=== PATIENT | female | born 1990 | race American Indian/Alaskan Native ===

== ENCOUNTER 2019-01-09 21:43 | Emergency (ER) | payer SELFPAY ==
--- NOTE | 2019-01-09 22:10 | Emergency Department Report ---
Blank Doc - Documentation Documentation: This is a 28-year-old female that presents with right knee pain. This initial assessment/diagnostic orders/clinical plan/treatment(s) is/are subject to change based on patient's health status, clinical progression and re- assessment by fellow clinical providers in the ED. Further treatment and workup at subsequent clinical providers discretion. Patient/guardians urged not to elope from the ED as their condition may be serious if not clinically assessed and managed. Initial orders include: 1- Patient sent to [facility] for further evaluation and treatment 2- xray
[2019-01-09 22:12] VITALS: BP 117/83
--- NOTE | 2019-01-09 22:58 | XRay Report ---
Right knee, 3 views INDICATION: Pain following injury yesterday FINDINGS: The joint space is maintained. There is no fracture or dislocation. No spurring or arthriti c change. No bone lesion or periostitis. No significant abnormality. IMPRESSION: Negative study Signer Name: Kuldeep Delarosa MD Signed: 01/09/2019 10:54 PM Workstation Name: [id number]
[2019-01-10] MEDS ORDERED: ULTRAM PO ONE (01:11)
--- NOTE | 2019-01-10 01:45 | Emergency Department Report ---
ED Lower Extremity HPI - General Chief Complaint: Extremity Injury, Lower Stated Complaint: RT LEG PAIN, MIGRAINE Time Seen by Provider: 01/09/19 22:10 Source: patient Mode of arrival: Wheelchair Limitations: No Limitations - History of Present Illness Initial Comments: pt is a 28 y/o aaf who presents for right knee pain state she struck her right knee on metal table at work yesterday now with pain and aching, 5/10 pt remains ambulatory with steady gait . Complaint: knee injury Onset/Timin -: days(s) Injury: Knee: Right Type of Injury: hyperextension Place: work Severity: moderate Severity scale (0 -10): 5 Improves With: nothing Worsens With: weight bearing, movement, palpation Context: direct blow Other Symptoms: loss of consciousness Associated Symptoms: swelling, able to partially bear weight. denies: snap/pop sensation, numbness, tingling - Related Data Previous Rx's Medication Instructions Recorded Last Taken Type Cyclobenzaprine [Flexeril] 10 mg PO TID PRN #30 tablet 01/10/19 Unknown Rx Menthol/Camphor [[place] 1 applicatio TP QID PRN #1 tube 01/10/19 Unknown Rx Ointment] Naproxen [Naprosyn] 500 mg PO BID PRN #30 tablet 01/10/19 Unknown Rx Allergies Allergy/AdvReac Type Severity Reaction Status Date / Time No Known Allergies Allergy Unverified 01/10/19 01:33 ED Review of Systems ROS: Stated complaint: RT LEG PAIN, MIGRAINE Other details as noted in HPI Constitutional: denies: chills, fever Eyes: denies: eye pain, eye discharge, vision change ENT: denies: ear pain, throat pain Respiratory: denies: cough, shortness of breath, wheezing Cardiovascular: denies: chest pain, palpitations Endocrine: no symptoms reported Gastrointestinal: denies: abdominal pain, nausea, diarrhea Genitourinary: denies: urgency, dysuria, discharge Musculoskeletal: joint swelling (right anterior knee pain ). denies: back pain, arthralgia Skin: denies: rash, lesions Neurological: denies: headache, weakness, paresthesias Psychiatric: denies: anxiety, depression Hematological/Lymphatic: denies: easy bleeding, easy bruising ED Past Medical Hx - Past Medical History Previous Medical History?: No - Surgical History Past Surgical History?: No - Social History Smoking Status: Never Smoker Substance Use Type: None - Medications Home Medications: Home Medications Medication Instructions Recorded Confirmed Last Taken Type Cyclobenzaprine [Flexeril] 10 mg PO TID PRN #30 tablet 01/10/19 Unknown Rx Menthol/Camphor [[place] 1 applicatio TP QID PRN #1 tube 01/10/19 Unknown Rx Ointment] Naproxen [Naprosyn] 500 mg PO BID PRN #30 tablet 01/10/19 Unknown Rx ED Physical Exam - General Limitations: No Limitations General appearance: alert, in no apparent distress - Head Head exam: Present: atraumatic, normocephalic - Eye Eye exam: Present: normal appearance, PERRL, EOMI Pupils: Present: normal accommodation - ENT ENT exam: Present: mucous membranes moist - Neck Neck exam: Present: normal inspection, full ROM. Absent: tenderness, lymphadenopathy, thyromegaly - Respiratory Respiratory exam: Present: normal lung sounds bilaterally. Absent: respiratory distress, wheezes, stridor, chest wall tenderness - Cardiovascular Cardiovascular Exam: Present: regular rate, normal rhythm, normal heart sounds. Absent: systolic murmur, diastolic murmur, rubs, gallop - GI/Abdominal GI/Abdominal exam: Present: soft, normal bowel sounds. Absent: distended, tenderness, bruit, hernia - Rectal Rectal exam: Present: deferred - Extremities Exam Extremities exam: Present: full ROM, tenderness, normal capillary refill. Absent: pedal edema, joint swelling, calf tenderness - Expanded Lower Extremity Exam Right Knee exam: Present: full ROM, tenderness (anterior medial knee ), pain w/ pronation/supination, full knee extension. Absent: swelling, abrasion, laceration, ecchymosis, deformity, crepidus, dislocation, erythema, effusion, posterior draw sign, pain/laxity with valgus, pain/laxity with varus Lower Leg exam: Present: full ROM. Absent: tenderness Ankle exam: Present: full ROM. Absent: tenderness Foot/Toe exam: Present: full ROM. Absent: tenderness, swelling Neuro vascular tendon exam: Absent: pulse deficit, motor deficit, sensory deficit, tendon deficit Gait: Positive: observed and normal - Back Exam Back exam: Present: normal inspection, full ROM. Absent: tenderness, CVA tenderness (R), CVA tenderness (L), muscle spasm, paraspinal tenderness, vertebral tenderness, rash noted - Neurological Exam Neurological exam: Present: alert, oriented X3, CN II-XII intact, normal gait, reflexes normal. Absent: motor sensory deficit - Psychiatric Psychiatric exam: Present: normal affect, normal mood - Skin Skin exam: Present: warm, dry, intact, normal color. Absent: rash ED Course Vital Signs 01/09/19 22:10 Temperature 98.6 F Pulse Rate 78 Respiratory 18 Rate Blood Pressure 117/83 O2 Sat by Pulse 100 Oximetry ED Lower Extremity MDM - Radiology Data Radiology results: report reviewed, image reviewed Ordering Physician: HANNAH LUNA NP Date of Service: 01/09/19 Procedure(s): XR knee 3V RT Accession Number(s): [id number] cc: HANNAH LUNA NP Fluoro Time In Minutes: Right knee, 3 views INDICATION: Pain following injury yesterday FINDINGS: The joint space is maintained. There is no fracture or dislocation. No spurring or arthritic change. No bone lesion or periostitis. No significant abnormality. IMPRESSION: Negative study Signer Name: Kuldeep Delarosa MD Signed: 01/09/2019 10:54 PM Workstation Name: [id number] Transcribed By: Dictated By: Kuldeep Delarosa MD Electronically Authenticated By: Kuldeep Delarosa MD Signed Date/Time: 01/09/192253 DD/ 52 TD/TT: - Medical Decision Making This is a knee strain, plan nsaids, muscle relaxant, analgesic balm follow up with ortho follow up with pcp in 2-3 days return to ed if symptoms worsen. Critical care attestation.: If time is entered above; I have spent that time in minutes in the direct care of this critically ill patient, excluding procedure time. ED Disposition Clinical Impression: Knee strain Qualifiers: Encounter type: initial encounter Laterality: left Qualified Code(s): S86.912A - Strain of unspecified muscle(s) and tendon(s) at lower leg level, left leg, initial encounter Disposition: - TO HOME OR SELFCARE Is pt being admited?: No Does the pt Need Aspirin: No Condition: Stable Instructions: Knee Pain (ED) Prescriptions: Cyclobenzaprine [Flexeril] 10 mg PO TID PRN #30 tablet PRN Reason: Muscle Spasm Naproxen [Naprosyn] 500 mg PO BID PRN #30 tablet PRN Reason: pain Menthol/Camphor [[place] Ointment] 1 applicatio TP QID PRN #1 tube PRN Reason: pain Referrals: MARIA R CASTELANHAMLIN MD NOÉ [Primary Care Provider] - 3-5 Days RAJINDER MITCHELL MD [Staff Physician] - 3-5 Days Forms: Work/School Release Form(ED) Time of Disposition: 01:57
== END 2019-01-10 02:24 | disposition home or self-care (01) ==
LOC: ED 21:43
DX: S86.912A Strain of unspecified muscle(s) and tendon(s) at lower leg level, left leg, initial encounter (principal); W22.03XA Walked into furniture, initial encounter; Y93.89 Activity, other specified; Y92.89 Other specified places as the place of occurrence of the external cause; Y99.8 Other external cause status

== ENCOUNTER → 2021-03-01 | Outpatient (CLI) | payer MEDICAID | END | disposition home or self-care (01) | LOC: SLR 11:00 | PROVIDERS: ATTEND Surgery | DX: G47.30 Sleep apnea, unspecified (principal) | CPT/HCPCS: G0399 ==

== ENCOUNTER 2021-06-22 07:15 | Day surgery (SDC) | payer MEDICAID ==
[~2021-06-22 07:15] MED LIST: SODIUM CHLORIDE 0.9% 1000 ML 1,000 ML IV SCH
--- NOTE | 2021-06-22 08:30 | Anesthesia Day of Surgery ---
Anesthesia Day of Surgery - Day of Surgery Patient Examined: Yes Patient H&P Reviewed: Yes Patient is NPO: Yes
--- NOTE | 2021-06-22 08:31 | Anesthesia Consultation ---
Anesthesia Consult and Med Hx Date of service: 06/22/21 - Airway Anesthetic Teeth Evaluation: Chipped ROM Head & Neck: Adequate Mental/Hyoid Distance: Adequate Mallampati Class: Class II Intubation Access Assessment: Probably Good - Pre-Operative Health Status ASA Pre-Surgery Classification: ASA3 Proposed Anesthetic Plan: MAC - Pulmonary Hx Smoking: No Hx Sleep Apnea: Yes - Gastrointestinal Hx Gastroesophageal Reflux Disease: Yes - Endocrine Hx Non-Insulin Dependent Diabetes: No - Hematic Hx Sickle Cell Disease: No - Other Systems Hx Obesity: Yes
--- NOTE | 2021-06-22 08:33 | Operative Report ---
Operative Report Operative Report: DATE: 06/22/2021 SURGERY: Upper endoscopy. SURGEON: Evangelina Magaña M.D. PROCEDURE: EGD with biopsy PRE OP DX: morbid obesity, GERD POST OP DX: morbid obesity, GERD TYPE OF ANESTHESIA: MAC. ESTIMATED BLOOD LOSS: None. COMPLICATIONS: None. SPECIMENS REMOVED: antral biopsy FINDINGS: 1. hiatal hernia. 2. esophagitis 3. gastritis INDICATIONS:INDICATION FOR PROCEDURE: Patient is a 31-year-old female with a long history of morbid obesity. She is planned to have a weight loss procedure and is here for preoperative planning EGD. PROCEDURE DETAILS: After consent was reviewed, patient was taken back to the operating room where patient was placed in the left lateral decubitus position and a bite block was placed in the mouth. After a time-out was called, MAC anesthesia was initiated. I then passed the endoscope into her oropharynx, into her esophagus, visualized the entire esophagus. There was noted to be an irregular z-line with esophagitis. A biopsy was taken of the distal esophagus. Z-line was noted to about 40cm from incisors. I then visualized the stomach and the first portion of the duodenum and there were no abnormalities I could clearly visualize except for antral gastritis. A cold forceps biopsy of the antrum was taken and will be sent to pathology to evaluate for H.pylori. I then retroflexed the scope in the stomach and visualized the hiatus and I could see a significant hiatal hernia measuring 2-3cm. I then desufflated the stomach and removed the endoscope. Patient tolerated procedure well and was transferred to recovery room in good and stable condition.
--- NOTE | 2021-06-22 08:34 | Discharge Summary ---
Providers - Providers Date of Admission: 06/22/2021 Date of discharge: 06/22/21 Attending physician: MONTY DELUNA MD Primary care physician: RENE HECK MD Hospitalization Reason for admission: pre-op egd Condition: Good Procedures: egd with bx Hospital course: Pt presented for a pre-op EGD as part of planning for up coming bariatric surgery. Procedure was uneventful and pt recovered well and was discharged to home. Disposition: HOME / SELF CARE / HOMELESS Final Discharge Diagnosis (Prints w/discharge instructions): gerd, morbid obesity Core Measure Documentation - Palliative Care Palliative Care/ Comfort Measures: Not Applicable - Core Measures Any of the following diagnoses?: none Exam - Physical Exam Narrative exam: unchanged from pre-op exam Plan Activity: advance as tolerated Diet: low carbohydrate Follow up with: RENE GUERRA MD [Primary Care Provider] - 7 Days
[2021-06-22] MEDS ORDERED: propofoL 200 MG/20 ML VIAL IV ONE (09:48)
[2021-06-22] MEDS ORDERED: LIDOCAINE MPF (2%) 20 MG/1 ML VIAL 5 ML ONE (10:08)
[2021-06-22 15:25] VITALS: BP 133/87
--- NOTE | 2021-06-22 15:49 | Post Anesthesia Evaluation ---
- Post Anesthesia Evaluation Patient Participated: Yes Airway Patent: Yes Stable Respiratory Function: Yes Nausea/Vomiting: No Temp > 96.8F: Yes Pain Manageable: Yes Adequeate Hydration: Yes Anesthesia Complications: No Block Receding Appropriately: Not Applicable Patient on Ventilator: No
== END 2021-06-22 11:05 | disposition home or self-care (01) ==
LOC: GIO 07:15
PROVIDERS: ATTEND Surgery
DX: E66.01 Morbid (severe) obesity due to excess calories (principal); K21.00 Gastro-esophageal reflux disease with esophagitis, without bleeding; K44.9 Diaphragmatic hernia without obstruction or gangrene; K29.50 Unspecified chronic gastritis without bleeding; K31.89 Other diseases of stomach and duodenum; G47.30 Sleep apnea, unspecified; Z79.899 Other long term (current) drug therapy; Z98.890 Other specified postprocedural states
CPT/HCPCS: 43239; 81025; 88305; 88342; J2704; J3490; J7030; J7120; Q0162

== ENCOUNTER 2021-09-13 08:32 | Inpatient (IN) | payer MEDICAID ==
[2021-09-09 10:02] LABS: Hematocrit 38.5 % (30.3-42.9); Hemoglobin 12.4 gm/dl (10.1-14.3); Mean Corpuscular HGB Conc 32 % (30-34); Mean Corpuscular Volume 83 fl (79-97); Platelet Count 213 K/mm3 (140-440); Red Blood Count 4.61 M/mm3 (3.65-5.03); Red Cell Distribution Width 15.6 % (13.2-15.2)
--- NOTE | 2021-09-09 10:16 | Anesthesia Consultation ---
Anesthesia Consult and Med Hx Date of service: 09/13/21 - Airway Anesthetic Teeth Evaluation: Good (upper and lower braces) ROM Head & Neck: Adequate Mental/Hyoid Distance: Adequate Mallampati Class: Class II Intubation Access Assessment: Probably Good - Pulmonary Exam CTA: Yes - Cardiac Exam Cardiac Exam: RRR - Pre-Operative Health Status ASA Pre-Surgery Classification: ASA3 Proposed Anesthetic Plan: General - Pulmonary Hx Smoking: Yes (daily THC) Hx Respiratory Symptoms: No (normal PFTs) Hx Sleep Apnea: Yes (moderate per sleep study; no currently using CPAP) - Cardiovascular System Hx Hypertension: No ("borderline," no meds) Hx Heart Attack/AMI: No (negative stress test) - Central Nervous System CVA: No Hx Back Pain: Yes - Gastrointestinal Hx Gastroesophageal Reflux Disease: Yes - Endocrine Hx Renal Disease: No Hx Liver Disease: No Hx Insulin Dependent Diabetes: No Hx Non-Insulin Dependent Diabetes: No Hx Thyroid Disease: No - Other Systems Hx Substance Use: Yes (Marijuana daily) Hx Obesity: Yes (BMI 46) - Additional Comments Anesthesia Medical History Comments: No prior [place]. Preop cardiac and pulmonary studies on chart reviewed.
[2021-09-09 11:26] LABS: Alanine Aminotransferase 16 units/L (7-56); Albumin 4.1 g/dL (3.9-5); BUN/Creatinine Ratio 23; Blood Urea Nitrogen 16 mg/dL (7-17); Calcium 9.4 mg/dL (8.4-10.2); Hemolysis Index 3
[~2021-09-13 08:32] MED LIST changes: +ACETAMINOPHEN IV 1,000 MG/100 ML BOTTLE IV NR; +ENOXAPARIN 40 MG/0.4 ML INJ SUB-Q NR; +GABAPENTIN 500 MG/10 ML ORAL LIQD PO NR; +LACTATED RINGERS 1,000 ML IV SCH; +MIDAZOLAM 2 MG/2 ML INJ IV NR; +SCOPOLAMINE TRANSDERMAL PATCH 72 HR TD NR; -SODIUM CHLORIDE 0.9% 1000 ML 1,000 ML IV SCH; +methOCARBAMOL 1,000 MG in SODIUM CHLORIDE 0.9% 250ML 250 ML IV SCH; +metroNIDAZOLE/NS 500 MG/100 ML 500 MG/100 ML BAG IV NR
[2021-09-13] MEDS: ENOXAPARIN 40 MG/0.4 ML INJ SUB-Q SCH (09:20)
[2021-09-13] MEDS ORDERED: LIDOCAINE 1%/EPINEPHRINE 1:100,000 VIAL (20 ML) INFILTRATI ONE ×2 (11:47→12:50)
[2021-09-13] MEDS ORDERED: BUPIVACAINE/PF (0.25%) 2.5 MG/ML 30 ML VIAL INFILTRATI ONE ×2 (11:47→12:50)
[2021-09-13] MEDS ORDERED: MAGNESIUM SULFATE 2 GM/50 ML BAG IV ONE (11:58)
[2021-09-13] MEDS ORDERED: ROCURONIUM 50 MG/5 ML INJ IV ONE ×2 (12:00→14:38)
[2021-09-13] MEDS ORDERED: LIDOCAINE MPF (2%) 20 MG/1 ML VIAL 5 ML ONE (12:00)
[2021-09-13] MEDS ORDERED: KETAMINE/STERILE WATER 50 MG/ML SYRINGE ONE (12:00)
[2021-09-13] MEDS ORDERED: SODIUM CHLORIDE P/F VIAL 10 ML 10 ML ONE (12:01)
[2021-09-13] MEDS ORDERED: WATER FOR IRRIG STERILE 1,500 ML BOTTLE IR ONE (12:50)
[2021-09-13] MEDS ORDERED: SODIUM CHLORIDE 0.9% IRR 1,500 ML BOTTLE IR ONE (12:50)
[2021-09-13] MEDS ORDERED: MIDAZOLAM 2 MG/2 ML INJ ONE (13:00)
[2021-09-13] MEDS ORDERED: dexAMETHasone 20 MG/5 ML VIAL ONE (14:38)
[2021-09-13] MEDS ORDERED: KETOROLAC 30 MG/1 ML INJ ONE (14:38)
[2021-09-13] MEDS ORDERED: ONDANSETRON 4 MG/2 ML INJ ONE (14:38)
[2021-09-13] MEDS ORDERED: HYDROmorphone 1 MG/1 ML INJ ONE (14:46)
[2021-09-13] MEDS: HYDROmorphone 1 MG/1 ML INJ IV PRN ×2 (14:50→15:00)
--- NOTE | 2021-09-13 15:17 | Operative Report ---
Operative Report Operative Report: DATE:09/13/2021 Surgeon: Evangelina Magaña MD Tram Inspector surgeon:Elio Villanueva CSA MD Pre-op Dx: morbid obesity, hiatal hernia Post-op Dx: morbid obesity, hiatal hernia Procedure: 1. laparoscopic sleeve gastrectomy, 2. hiatal hernia repair Anesthesia: GETA and TAP block EBL: <10ml Specimen: gastric remnant Complication: none immediate Indication: 31 year old female with a history of morbid obesity . Pt is here for sleeve gastrectomy for weight loss to achieve healthier weight and improve or resolve her co-morbidities. She expressed understanding of the risks and benefits. PROCEDURE IN DETAIL: After consent was reviewed, patient was taken back to the operating room, where patient was placed supine on the bed with both arms out. The patient's legs were doubly strapped to the bed. Patient had a foot board in place. Patient had a body warmer placed by anesthesia. General anesthesia was induced with successful endotracheal intubation. Patient was then prepped and draped in normal sterile surgical fashion. After a time-out was called, I made a stab incision in the left subcostal area and placed a Veress needle through this incision and insufflated the abdomen to 15 mmHg pressure. I then counted down a handsbreadth below the xiphoid process in the midline and slightly left lateral injected local anesthetic and made about 1 cm transverse incision. I then used a 5-mm Optiview trocar to enter into the abdomen. There was no gross injury to any intra-abdominal structures. I then placed a 30-degree scope through this port and inspected the abdomen. I then placed a 8-mm port in the right upper quadrant, and 1 5mm in the epigastric area below the costovertebral angle. I then placed a 15-mm port about a handsbreadth in the right mid abdomen. After which a 5mm port was placed in left upper quadrant port along the anterior axillary line in a similar fashion. A liver retractor was placed to the epigastric port to elevate the left lateral lobe and liver. There was a small hiatal hernia appreciated that was accentuated with right and left crural dissection. Hiatal hernia sac was dissected from the crura until the GE junction was resting about 2cm below the level of the diaphragm without tension. An anterior crura-plasty was preformed a U-stitch using surgidac suture. The an terior gastric fat pad was excised. Starting approximately 6 cm proximal to the pylorus, using a Enseal device the short gastrics were taken all the way to the left lisa. Once the lateral portion of the stomach was mobile anesthesia passed a 40 Polish bougie along the medial aspect to act as a stent. Using serial firings of endoscopic stapler to gold, followed by 4 blue, the lateral portion of the stomach was transected making sure to did not close to the 2 cm to the incisura. All staple loads were supported with Ethicon buttress strips. The sleeve stomach was seen to be without kink obstruction or twisting. The pressure was decreased to 10 mmHg. The staple line was inspected for approximately 5 minutes. There was no significant bleeding appreciated except for a slight ooze at the most distal portion of the staple line. Bleeding was minimal and easily controlled with minimal cautery. Vistaseal was then sprayed along the entirety of the staple line. The liver retractor was removed. A TAP block was performed with 60ml of 0.25% marcaine along bilateral mid axillary lines starting from the subcostal region to just below the level of the umbilicus This was after the gastric remnant was grasped and pulled into the 15 mm trocar site. The stomach was extracted via the 15 mm trocar site. After the fascia had to be stretched with a Delia clamp to easily remove the stomach, the fascia was closed using a yonatan jaguar device at the level of the fascia with an 0 PDS. trocars were removed under direct visualization. All skin incisions were closed with 4-0 Monocryl followed by Dermabond. Patient was awoken, extubated, and taken to recovery stable condition. All counts were correct.
--- NOTE | 2021-09-13 16:18 | Anesthesia Day of Surgery ---
Anesthesia Day of Surgery - Day of Surgery Patient Examined: Yes Patient H&P Reviewed: Yes Patient is NPO: Yes
[2021-09-13] MEDS: KETOROLAC 30 MG/1 ML INJ IV SCH ×2 (16:50→22:26)
[2021-09-13] MEDS ORDERED: hydrALAZINE 20 MG/1 ML INJ IV PRN (17:00)
[2021-09-13] MEDS ORDERED: SIMETHICONE 80 MG CHEW TAB PO PRN (17:00)
[2021-09-13] MEDS ORDERED: HYDROmorphone 1 MG/1 ML INJ IV PRN (17:00)
[2021-09-13] MEDS ORDERED: MORPHINE 2 MG/1 ML INJ IV PRN (17:00)
[2021-09-13] MEDS ORDERED: METOCLOPRAMIDE 10 MG/2 ML INJ IV PRN (17:00)
[2021-09-13] MEDS ORDERED: HYDROcodone/Acetaminophen 7.5-325MG-15ML ORAL LIQD PO PRN (17:00)
[2021-09-13] MEDS: ONDANSETRON 4 MG/2 ML INJ IV PRN (18:50)
[2021-09-13] MEDS: PANTOPRAZOLE 40 MG INJ IV SCH (18:50)
[2021-09-13] MEDS: ACETAMINOPHEN IV 1,000 MG/100 ML BOTTLE IV SCH ×2 (18:55→23:55)
[2021-09-13] MEDS: LACTATED RINGERS 1,000 ML IV SCH (19:03)
[2021-09-13] MEDS: metroNIDAZOLE/NS 500 MG/100 ML 500 MG/100 ML BAG IV SCH (22:34)
[2021-09-13] MEDS: ceFAZolin/NS 1 GM/50 ML 1 GM/50 ML BAG IV SCH (23:06)
[2021-09-14] MEDS: metroNIDAZOLE/NS 500 MG/100 ML 500 MG/100 ML BAG IV SCH ×2 (00:02→08:16)
[2021-09-14] MEDS: ceFAZolin/NS 1 GM/50 ML 1 GM/50 ML BAG IV SCH ×2 (00:07→04:00)
[2021-09-14] MEDS: LACTATED RINGERS 1,000 ML IV SCH ×2 (00:34→08:37)
[2021-09-14] MEDS: ONDANSETRON 4 MG/2 ML INJ IV PRN ×2 (01:09→05:23)
[2021-09-14] MEDS: KETOROLAC 30 MG/1 ML INJ IV SCH ×2 (04:02→09:41)
[2021-09-14] MEDS: ACETAMINOPHEN IV 1,000 MG/100 ML BOTTLE IV SCH ×2 (05:23→13:37)
--- OUTSIDE RECORDS SUMMARY | 2021-09-14 06:00 | External Medical Summary ---
:1990 Author Organization [facility], [facility] Address [address] [place] [address] Care Team Providers Name Role Phone Archana Unavailable [phone] PROBLEMS Type Condition ICD9-CM DRM35-PI Onset Condition W/U Status Risk SNOM ED Notes Code Code Dates Status Code Problem Sleep G47.9 Active confirmed 93789223 disorder, unspecified Problem Sleep apnea, G47.30 Active confirmed [id number] unspecified Problem Dietary Z71.3 Active confirmed 396037021 counseling and surveillance Problem Morbid E66.01 Active confirmed [id number] (severe) obesity due to excess calories Problem Gastro-esopha K21.9 Active confirmed [id number] 005 geal reflux disease without esophagitis ALLERGIES No Known Allergies ENCOUNTERS from 1992 to 2021-09-10 Encounter Location Date Provider Diagnosis [facility] [address] [place] [address] Sep, Evangelina Magaña Morbi d (severe) RD [facility] Level obesity due to excess of [facility] [place], [place] calorie s E66.01 ; [id number] Gastro-esophage al reflux disease without esophagitis K21 .9 and Sleep apnea, unspecified G47 .30 IMMUNIZATIONS No Information SOCIAL HISTORY Tobacco Use: Social History Observation Description Date Details (start date - stop date) Never Smoker Sex Assigned At : Social History Observation Description Sex Assigned At Unknown Smoking Question Answer Notes Are you a: never smoker REASON FOR REFERRAL from 1992 to 2021-09-10 Reason Gastric Sleeve Diagnosis 1 Morbid (severe) obesity due to excess calories (E66.01) Diagnosis 2 Gastro-esophageal reflux dis ease without esophagitis (K21.9) Diagnosis 3 Sleep disorder, unspecified (G47.9) Diagnosis 4 Pain in left knee (M25.562) Diagnosis 5 Low back pain (M54.5) Diagnosis 6 Sleep apnea, unspecified (G4 7.30) Referral Organization [facility] Referring Provider First Name Evangelina Referring Provider Last Name Archana Referring Provider Specialty Surgery Referred Provider [facility], - Referral Priority Routine VITAL SIGNS Height 66 in Sep, Weight 290 lbs Sep, Temperature 97.3 degrees Fahrenheit Sep, BMI 46.80 kg/m2 Sep, MEDICATIONS Medication SIG (Take, Route, Notes Start Date End Date Status Frequency, Duration) HYDROcodone-Acetaminophe 15 ml as needed Orally Sep,Sep, Active n 7.5-325 MG/15ML every 6 hrs prn pain for 7 days Omeprazole 40 MG 1 capsule 30 minutes Sep, Active before morning meal Orally Once a day for 30 day(s) Ondansetron 4 MG 1-2 tablet on the Sep, Active tongue and allow to dissolve Orally q 4-6 hours prn nausea Omeprazole 40 MG 1 capsule 30 minutes Jun, Active before morning meal Orally Once a day for 30 day(s) PROCEDURES No Information RESULTS No Results REASON FOR VISIT preop sleeve MEDICAL (GENERAL) HISTORY Type Description Date Medical History morbid obesity Medical History gerd Medical History back pain Surgical History 07/06/20 Hospitalization History as above Goals Section No Information Health Concerns No Information MEDICAL EQUIPMENT No Information MENTAL STATUS No Information FUNCTIONAL STATUS No Information ASSESSMENTS Encounter Date Diagnosis Assessment Notes Treatment Notes Treatm ent Clinical Notes Sep, Morbid (severe) An hour was spen t with patient reinforcing diet, vitamin requirements and lifestyle education, A quiz was administered and reviewed to verify understanding of intended procedure and post operative care. obesity due to Consent forms w ere reviewed with patient and signed answering all questions, Pre-operative labs were ordered. excess calories (ICD-10 - E66.01) Sep, Gastro-esophageal Should improve with lynn ght loss surgery. reflux disease without esophagitis (ICD-10 - K21.9) 01 Apr, 2022 Sleep apnea, Continue use of CPAP machine, should resolve or greatly improve after weight loss surgery, and will titrate CPAP machine as tolerated. unspecified (ICD-10 - G47.30) PLAN OF TREATMENT Medication Medication Name Sig Start Date Stop Date HYDROcodone-Acetaminophen 15 ml as needed Orally every Sep, 2 022 8 Sep, 2021 7.5-325 MG/15ML 6 hrs prn pain for 7 days Ondansetron 4 MG 1-2 tablet on the tongue and Sep, allow to dissolve Orally q 4-6 hours prn nausea Omeprazole 40 MG 1 capsule 30 minutes before Sep, morning meal Orally Once a day for 30 day(s) Treatment Notes Assessment Notes Clinical Notes Morbid (severe) obesity due to An hour was spent with patient reinforcing diet, vitamin requirements and lifestyle education, A quiz was administered and reviewed to verify understanding of intended procedure and post operative care. excess calories Consent forms were reviewed with patient and signed answering all questions, Pre-operative labs were ordered. Gastro-esophageal reflux disease Should improve with weight loss surgery. without esophagitis Sleep apnea, unspecified Continue use of CPAP machine , should resolve or greatly improve after weight loss surgery, and will titrate CPAP machine as tolerated. Referrals Referral Date Details Gastric Sleeve Next Appt Details at surgery Reason: Provider Name:Evangelina Magaña, 2021-09-03 1 10:00:00 AM, [address] [facility], [place], [place], [phone], Insurance Providers Payer Payer Payer Insured Patient Coverage Coverage Subscriber Samuel up Name Address Phone Name Relationship Start Date End Date Number Number to Insured [employer] [address] [place], self 2018 [id number] [address] [phone] [facility] [id number] MEDICATIONS ADMINISTERED Medication Instructions Date of Administration Dosage Depo-Medrol Jan, 80 mg
[2021-09-14 06:28] LABS: Basophils % (Auto) 0.2 % (0.0-1.8); Hematocrit 38.3 % (30.3-42.9); Hemoglobin 12.3 gm/dl (10.1-14.3); Lymphocytes # (Auto) 1.1 K/mm3 (1.2-5.4); Lymphocytes % (Auto) 11.4 % (13.4-35.0); Mean Corpuscular HGB Conc 32 % (30-34); Mean Corpuscular Volume 84 fl (79-97); Monocytes # (Auto) 0.9 K/mm3 (0.0-0.8); Monocytes % (Auto) 8.6 % (0.0-7.3); Platelet Count 231 K/mm3 (140-440); Red Blood Count 4.55 M/mm3 (3.65-5.03); Red Cell Distribution Width 15.2 % (13.2-15.2)
[2021-09-14 06:49] LABS: Alanine Aminotransferase 46 units/L (7-56); Albumin 3.9 g/dL (3.9-5); BUN/Creatinine Ratio 6; Blood Urea Nitrogen 5 mg/dL (7-17); Calcium 8.6 mg/dL (8.4-10.2); Hemolysis Index 4
[2021-09-14] MEDS: ENOXAPARIN 40 MG/0.4 ML INJ SUB-Q SCH (09:40)
[2021-09-14] MEDS: PANTOPRAZOLE 40 MG INJ IV SCH (09:41)
--- NOTE | 2021-09-14 10:05 | Discharge Summary ---
Providers - Providers Date of Admission: 09/13/21 08:33 Date of discharge: 09/14/21 Attending physician: MONTY DELUNA MD 09/13/21 15:05 Physical Therapy Evaluation and Treat [CONS] Routine Comment: Reason For Exam: s/p bariatric surgery Primary care physician: RENE HECK MD Hospitalization Reason for admission: s/p bariatric surgery Condition: Good Procedures: laparoscopic gastric sleeve with hiatal hernia Hospital course: Pt had an uncomplicated lap gastric sleeve with hiatal hernia repair for the treatment of obesity and gerd. She recovered well by remaining afebrile and stable. She had laboratory values that were within acceptable limits. She was tolerating clear liquids and ambulating independently. She had adequate pain control. Patient was discharged on postop day #1 showing no gross clinical signs of leak or bleeding. Disposition: 01 HOME / SELF CARE / HOMELESS Final Discharge Diagnosis (Prints w/discharge instructions): morbid obesity, gerd, dalia Core Measure Documentation - Palliative Care Palliative Care/ Comfort Measures: Not Applicable - Core Measures Any of the following diagnoses?: none Exam - Constitutional Vitals: Temp Pulse Resp BP Pulse Ox 98.7 F 82 16 157/88 96 09/14/21 07:30 09/14/21 07:30 09/14/21 07:30 09/14/21 07:30 09/14/21 07:30 General appearance: Present: no acute distress, obese - EENT Eyes: Present: PERRL. Absent: scleral icterus - Respiratory Respiratory effort: normal - Cardiovascular Heart Sounds: Present: S1 & S2 - Extremities Extremities: no ischemia - Abdominal General gastrointestinal: Present: soft, other (incisions c/d/i, appropriately tender to palpation) Plan Activity: advance as tolerated Diet: clear liquids Wound: open to air, keep clean and dry Follow up with: RENE GUERRA MD [Primary Care Provider] - 7 Days
[2021-09-14 12:24] VITALS: BP 154/85
--- NOTE | 2021-09-14 14:23 | Post Anesthesia Evaluation ---
- Post Anesthesia Evaluation Patient Participated: Yes Airway Patent: Yes Stable Respiratory Function: Yes Nausea/Vomiting: No Temp > 96.8F: Yes Pain Manageable: Yes (no pain) Adequeate Hydration: Yes Anesthesia Complications: No Block Receding Appropriately: Yes Patient on Ventilator: No Other Comments: patient ambulated, being discharged home
== END 2021-09-14 14:00 | disposition home or self-care (01) | DRG 621 ==
LOC: OR 08:32 → 4A 08:33
PROVIDERS: ADMIT Surgery; ATTEND Surgery
PROC: 0DB64Z3 Excision of Stomach, Percutaneous Endoscopic Approach, Vertical (ICD-10-PCS; principal; 2021-09-13)
PROC: 0BQT4ZZ Repair Diaphragm, Percutaneous Endoscopic Approach (ICD-10-PCS; 2021-09-13)
DX: E66.01 Morbid (severe) obesity due to excess calories (principal); K21.9 Gastro-esophageal reflux disease without esophagitis; K44.9 Diaphragmatic hernia without obstruction or gangrene; Z20.822 Contact with and (suspected) exposure to COVID-19; Z68.42 Body mass index [BMI] 45.0-49.9, adult
CPT/HCPCS: 36415; 80053; 84703; 85025; 85027; 88307; 88342; 99406; G0378; J3490; J7517; C9113; J0131; J0360; J0690; J1100; J1170; J1650; J1885; J2250; J2270; J2405; J2704; J2800; J3475; J7050; J7120; U0003